=== PATIENT | male | born 1985 | race African-American/Black ===

== ENCOUNTER 2017-01-16 09:05 | Emergency (ER) | payer OTHER ==
[~2017-01-16] VITALS: Ht 177.8 cm; Wt 68.0 kg
[2017-01-16 09:18] VITALS: BP 106/85; PULSE 78; RESP 16; TEMP 98.2; O2SAT 99
[2017-01-16] MEDS ORDERED: LIDOCAINE HCL 2% 20 ML VIAL INFIL ONE (09:30)
[2017-01-16] MEDS ORDERED: LIDOCAINE 1%/EPINEPHrine 1:100,000 SOLN 20 ML VIAL INFIL ONE (09:30)
[2017-01-16] MEDS ORDERED: TETANUS/DIPHTHERIA TOXOID ADULT 0.5 ML VIAL IM ONE (09:30)
[2017-01-16] MEDS ORDERED: LIDOCAINE 2%/EPINEPHrine 1:100,000 30ML MDV INFIL ONE (09:30)
[2017-01-16] MEDS ORDERED: LIDOCAINE HCL 1% 50 ML VIAL INFIL ONE (09:30)
[2017-01-16] MEDS ORDERED: BUPIVACAINE HCL PF 0.5% 10 ML VIAL INFIL ONE (09:30)
[2017-01-16] MEDS ORDERED: CEPH-460 PO (10:10)
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
== END 2017-01-16 10:51 | disposition home or self-care (01) ==
LOC: NEPD 09:05
DX: S41.112A Laceration without foreign body of left upper arm, initial encounter (principal); W26.0XXA Contact with knife, initial encounter; Z23 Encounter for immunization
CPT/HCPCS: 12034; 90471; 90714; 96365; 99283; J0690

== ENCOUNTER 2017-04-11 21:07 | Emergency (ER) | payer SELFPAY ==
[~2017-04-11] VITALS: Ht 165.1 cm; Wt 75.0 kg
[~2017-04-11 21:07] MED LIST: CEPH-460 PO
[2017-04-11 21:09] VITALS: BP 139/62; PULSE 81; RESP 16; TEMP 98.7; O2SAT 98
[2017-04-11] MEDS ORDERED: DEXAMETHASONE SOD PHOS 4 MG/ML VIAL IM ONE (21:45)
--- NOTE | 2017-04-11 22:01 | PD ---
HPI Chief Complaint: ENT Complaint Time Seen by Provider: 21:24 Travel History International Travel<30 days: No Contact w/Intl Traveler<30days: No Traveled to known affect area: No History of Present Illness HPI 31-year-old male presents emergency department for evaluation of sore throat worsening over the last 2 days. Patient denies fever or chills. States the pain is an 8 out of 10, exacerbated with swallowing. Radiates to his right ear. Patient denies any cough or chest congestion. No nausea, vomiting, or diarrhea. He has no other symptoms to report. [facility] Past Medical History Medical History: Denies Significant Hx Diminished Hearing: No Immunizations Current: Yes Tetanus Vaccination: < 5 Years Influenza Vaccination: No Social History Alcohol Use: No Tobacco Use: No Substance Use: No Allergies-Medications (Allergen,Severity, Reaction): Coded Allergies: No Known Allergies (Unverified Adverse Reaction, Unknown, 04/11/17) Reported Meds & Prescriptions Reported Meds & Active Scripts Active Keflex (Cephalexin) 500 Mg Cap 500 Mg PO Q8H 5 Days Review of Systems Except as stated in HPI: all other systems reviewed are Neg Physical Exam Narrative GENERAL: Well-nourished, well-developed male patient in no acute distress SKIN: Focused skin assessment warm/dry. HEAD: Normocephalic. EARS: Bilateral pinnae and external canals appear within normal limits. Bilateral tympanic membranes without erythema, dullness or perforation. EYES: No scleral icterus. No injection or drainage. ENT: Mucosa pink and moist. Mylo significant erythema, moderate edema, and a few exudate. No uvular edema. No uvular, palatal, or tonsillar deviation. Airway patent. Nasal turbinates appear normal without nasal blood, purulent drainage or septal hematoma. NECK: Supple, trachea midline. Anterior cervical lymphadenopathy. CARDIOVASCULAR: Regular rate and rhythm without murmurs, gallops, or rubs. RESPIRATORY: Breath sounds equal bilaterally. No accessory muscle use. GASTROINTESTINAL: Abdomen soft, non-tender, nondistended. MUSCULOSKELETAL: No cyanosis, or edema. BACK: Nontender without obvious deformity. No CVA tenderness. Data Data Last Documented VS Vital Signs Date Time Temp Pulse Resp B/P (MAP) Pulse Ox O2 Delivery O2 Flow Rate FiO2 04/11/17 22:38 04/11/17 21:09 98.7 81 16 98 Room Air Orders Orders Dexamethasone Inj (Decadron Inj) (04/11/17 21:45) Group A Rapid Strep Screen (04/11/17 21:38) Strep Culture (Group A) (04/11/17 21:45) Ed Discharge Order (04/11/17 22:29) MDM Medical Decision Making Medical Screen Exam Complete: Yes Emergency Medical Condition: Yes Medical Record Reviewed: Yes Differential Diagnosis Pharyngitis viral versus strep versus tonsillitis versus common cold versus allergies versus otitis media Narrative Course 31-year-old male presents to emergency department for evaluation of sore throat. Physical exam is consistent with the pharyngitis. Airway remains patent and patient can control his secretions. Rapid strep screen is negative. Patient is given IM Decadron and counseled on symptom management. He agrees to return immediately with any acute worsening of symptoms Diagnosis Primary Impression: Pharyngitis with viral syndrome Referrals: Primary Care Physician Patient Instructions: General Instructions, Pharyngitis (ED) Departure Forms: Tests/Procedures, Work Release Enter return to work date: Apr 13, 2017 Additional Instructions: Warm salt water gargles may help to alleviate symptoms Tylenol or ibuprofen as directed on the package as needed for fever and/or pain Avoid abrasive and acidic foods Follow up with a primary care provider Return to ED with acute worsening of symptoms Med/Other Pt SpecificInfo: No Change to Meds Disposition: 01 DISCHARGE HOME Condition: Stable GladysAreliarya GAINES Apr 11, 2017 22:01
== END 2017-04-11 22:38 | disposition home or self-care (01) ==
LOC: NEPD 21:07
DX: J02.9 Acute pharyngitis, unspecified (principal); B34.9 Viral infection, unspecified
CPT/HCPCS: 87081; 87880; 96372; 99284; J1100